=== PATIENT | female | born 1945 | race Caucasian/White ===

== ENCOUNTER 2022-04-09 14:52 | Inpatient (IN) | payer MEDICARE, MEDICAID ==
[~2022-04-09] VITALS: Ht 154.9 cm; Wt 59.2 kg
[2022-04-09] MEDS ORDERED: ATOR10TA PO (15:24)
[2022-04-09] MEDS ORDERED: METO-296 PO (15:24)
[2022-04-09] MEDS ORDERED: LISI-893 PO (15:24)
[2022-04-09] MEDS ORDERED: CLOP75TA60 PO (15:24)
[2022-04-09] MEDS ORDERED: PROPARACAINE HCL 0.5% 15 ML OPHTHALMIC SOLUTION OU ONE (16:00)
[2022-04-09 16:24] LABS: BASOPHILS % (AUTO) 0.6 % (0.0-2.0); EOSINOPHILS % (AUTO) 0.6 % (1.0-6.0); HEMATOCRIT 39.2 % (36-46); HEMOGLOBIN 12.8 g/dL (12.0-16.0); LYMPHOCYTES # (AUTO) 1.6 K/uL (1.0-4.8); MEAN CORPUSCULAR HEMOGLOBIN 30.9 pg (26.0-34.0); MEAN CORPUSCULAR HGB CONC 32.7 G/dL (31.0-37.0); MEAN CORPUSCULAR VOLUME 95 fL (80-100); MONOCYTES # (AUTO) 1.3 K/uL (0.1-1.0); MONOCYTES % (AUTO) 10.9 % (2.0-9.0); NEUTROPHILS # (AUTO) 8.5 K/uL (1.8-7.7); NEUTROPHILS % (AUTO) 73.9 % (40.0-70.0); PLATELET COUNT (AUTO) 377 K/uL (150-450); RED BLOOD CELL COUNT(AUTO) 4.14 MIL/uL (4.00-5.20)
[2022-04-09 16:31] LABS: COVID AG,FIA SOURCE NASOPHARYNGEAL
[2022-04-09 16:34] LABS: ANION GAP 4 mmol/L (8-16); CALCIUM, TOTAL 8.4 mg/dL (8.8-10.5); CARBON DIOXIDE 27 mmol/L (22-29); CHLORIDE 105 mmol/L (98-107); CREATININE 1.05 mg/dL (0.60-1.30); GLUCOSE,RANDOM 192 mg/dL (70-110); POTASSIUM 4.9 mmol/L (3.5-5.1); SODIUM SERUM 136 mmol/L (136-145); UREA NITROGEN, BLOOD 15 mg/dL (7-18)
[2022-04-09 16:35] LABS: GLOMERULAR FILTR. RATE CALC 51 mL/min (>60)
[2022-04-09 16:39] LABS: ALANINE AMINOTRANSFERASE 22 U/L (12-78); ALBUMIN 3.2 g/dL (3.4-5.0); ALKALINE PHOSPHATASE 91 U/L (46-116); ASPARTATE AMINOTRANSFERASE 18 U/L (15-37); BILIRUBIN,TOTAL 0.4 mg/dL (0.1-1.0); LIPASE 131 U/L (73-393); TOTAL PROTEIN, SERUM 6.6 g/dL (6.4-8.2)
[2022-04-09 16:41] LABS: B-TYPE NATRIURETIC PEPTIDE 9 pg/mL (0-100)
[2022-04-09 16:45] LABS: LACTIC ACID 2.3 mmol/L (0.4-2.0)
[2022-04-09] MEDS ORDERED: PROP10DR5 OP (18:07)
[2022-04-09] MEDS ORDERED: BIMA2.5D4 OS (18:07)
[2022-04-09] MEDS ORDERED: PRED5DRO25 OS (18:07)
[2022-04-09 18:27] LABS: APPEARANCE,URINE HAZY (CLEAR); BILIRUBIN,URINE NEGATIVE (NEGATIVE); GLUCOSE, URINE (UA) >=1000 mg/dL (NEGATIVE); KETONES,URINE NEGATIVE (NEGATIVE); LEUKOCYTE ESTERASE ,URINE SMALL (NEGATIVE); NITRATE,URINE NEGATIVE (NEGATIVE); OCCULT BLOOD,URINE NEGATIVE (NEGATIVE); PH,URINE 5.5 (5.0-8.0); PROTEIN,URINE NEGATIVE (NEGATIVE); SPECIFIC GRAVITIY, URINE 1.016 (1.003-1.030); UROBILINOGEN,URINE <=1.0 mg/dL (<=1.0)
[2022-04-09 18:40] LABS: BACTERIA,URINE Moderate /HPF (None Seen); RBC,URINE 0-2 /HPF (0-2); SQUAMOUS EPITHELIAL CELL,UR Many /LPF (None Seen)
[2022-04-09] MEDS ORDERED: ACETAMINOPHEN 325 MG TABLET PO PRN ×2 (19:00→19:30)
[2022-04-09] MEDS ORDERED: CefTRIAXone 1 GM/DEXTROSE 50 ML IV ONE (19:00)
[2022-04-09] MEDS ORDERED: 0.9% SODIUM CHLORIDE 10 ML SYRINGE IVP PRN (19:00)
[2022-04-09] MEDS ORDERED: ONDANSETRON HCL 4 MG/2 ML VIAL IVP PRN ×2 (19:00→19:30)
[2022-04-09] MEDS ORDERED: ZOLPIDEM TARTRATE 5 MG TABLET PO PRN (19:30)
[2022-04-09] MEDS ORDERED: MAGNESIUM HYDROXIDE SUSPENSION 30 ML UDCUP PO PRN (19:30)
[2022-04-09] MEDS ORDERED: BISACODYL 10 MG RECTAL RECTAL SUPPOSITORY PR PRN (19:30)
[2022-04-09] MEDS ORDERED: HYDROCODONE/ACETAMINOPHEN 5-325 MG TABLET PO PRN (19:30)
[2022-04-09] MEDS ORDERED: MORPHINE SULFATE 2 MG/ML SYRINGE IVP PRN (19:30)
[2022-04-09] MEDS ORDERED: *PATIENT'S OWN MED [ENTER DRUG, DOSE, FREQUENCY IN COMMENTS] CLINICAL ONE (19:45)
[2022-04-09] MEDS ORDERED: BIMATOPROST 0.01% 2.5 ML OPHTHALMIC SOLUTION OS SCH (21:00)
[2022-04-09] MEDS ORDERED: SYSTANE OU SCH (21:00)
[2022-04-09] MEDS ORDERED: BRIMONIDINE TARTRATE 0.15% 5 ML OPHTHALMIC SOLUTION OS SCH (21:00)
[2022-04-09] MEDS ORDERED: BRINZOLAMIDE 1% 10 ML OPHTHALMIC SUSPENSION OS SCH (21:00)
[2022-04-09] MEDS: DOCUSATE SODIUM 100 MG CAPSULE PO SCH (21:00)
[2022-04-09 21:41] VITALS: BP 145/60
[2022-04-09 23:40] VITALS: BP 105/59
[2022-04-10] MEDS: HEPARIN SODIUM,PORCINE 5,000 UNITS/ML VIAL SQ SCH ×3 (00:48→16:00)
[2022-04-10 03:50] VITALS: BP 111/53
[2022-04-10 06:47] LABS: BASOPHILS % (AUTO) 0.8 % (0.0-2.0); EOSINOPHILS % (AUTO) 1.4 % (1.0-6.0); HEMATOCRIT 39.9 % (36-46); HEMOGLOBIN 13.3 g/dL (12.0-16.0); LYMPHOCYTES # (AUTO) 2.2 K/uL (1.0-4.8); LYMPHOCYTES % (AUTO) 23.5 % (22.0-44.0); MEAN CORPUSCULAR HEMOGLOBIN 31.7 pg (26.0-34.0); MEAN CORPUSCULAR HGB CONC 33.3 G/dL (31.0-37.0); MEAN CORPUSCULAR VOLUME 95 fL (80-100); MONOCYTES % (AUTO) 10.9 % (2.0-9.0); NEUTROPHILS # (AUTO) 5.9 K/uL (1.8-7.7); NEUTROPHILS % (AUTO) 63.4 % (40.0-70.0); PLATELET COUNT (AUTO) 362 K/uL (150-450); RED CELL DISTRIBUTION WIDTH 13.9 % (11.5-14.5)
[2022-04-10 07:07] LABS: CALCIUM, TOTAL 8.9 mg/dL (8.8-10.5); CREATININE 0.93 mg/dL (0.60-1.30); POTASSIUM 4.3 mmol/L (3.5-5.1)
[2022-04-10] MEDS: DOCUSATE SODIUM 100 MG CAPSULE PO SCH ×2 (08:29→20:29)
[2022-04-10] MEDS: CLOPIDOGREL BISULFATE 75 MG TABLET PO SCH (08:30)
[2022-04-10] MEDS: ATORVASTATIN CALCIUM 10 MG TABLET PO SCH (08:30)
[2022-04-10] MEDS: PANTOPRAZOLE SODIUM 40 MG DR TABLET PO SCH (08:30)
[2022-04-10] MEDS ORDERED: SODIUM CHLORIDE 0.9% 1,000 ML ONE (08:45)
[2022-04-10] MEDS ORDERED: LISINOPRIL 10 MG TABLET PO SCH (09:00)
[2022-04-10] MEDS: BIMATOPROST 0.01% 2.5 ML OPHTHALMIC SOLUTION OS SCH (09:00)
[2022-04-10] MEDS ORDERED: PrednisoLONE ACETATE 1% 5 ML OPHTHALMIC SUSPENSION OD SCH (09:00)
[2022-04-10 09:44] VITALS: BP 121/77
[2022-04-10 12:16] VITALS: BP 120/49
[2022-04-10] MEDS ORDERED: SODIUM CHLORIDE 0.9% 1,000 ML IV ONE (12:45)
[2022-04-10] MEDS ORDERED: *CLINICAL-LEVOFLOXACIN IVPB DOSING CLINICAL ONE (12:45)
[2022-04-10] MEDS ORDERED: LEVOFLOXACIN 750 MG/D5% WATER 150 ML IV SCH (13:00)
[2022-04-10 16:27] VITALS: BP 127/64
[2022-04-10 19:14] VITALS: BP 118/64
[2022-04-11 00:10] VITALS: BP 113/67
[2022-04-11] MEDS: HEPARIN SODIUM,PORCINE 5,000 UNITS/ML VIAL SQ SCH ×3 (00:18→15:24)
[2022-04-11 06:53] VITALS: BP 121/75
[2022-04-11 07:31] VITALS: BP 120/63
[2022-04-11 08:17] LABS: BASOPHILS % (AUTO) 0.7 % (0.0-2.0); EOSINOPHILS % (AUTO) 1.7 % (1.0-6.0); HEMOGLOBIN 13.3 g/dL (12.0-16.0); LYMPHOCYTES # (AUTO) 2.4 K/uL (1.0-4.8); LYMPHOCYTES % (AUTO) 27.2 % (22.0-44.0); MEAN CORPUSCULAR HEMOGLOBIN 31.3 pg (26.0-34.0); MEAN CORPUSCULAR HGB CONC 33.1 G/dL (31.0-37.0); MEAN CORPUSCULAR VOLUME 95 fL (80-100); MONOCYTES # (AUTO) 0.9 K/uL (0.1-1.0); MONOCYTES % (AUTO) 10.3 % (2.0-9.0); NEUTROPHILS # (AUTO) 5.3 K/uL (1.8-7.7); NEUTROPHILS % (AUTO) 60.1 % (40.0-70.0); PLATELET COUNT (AUTO) 377 K/uL (150-450); RED BLOOD CELL COUNT(AUTO) 4.23 MIL/uL (4.00-5.20); RED CELL DISTRIBUTION WIDTH 14.1 % (11.5-14.5)
[2022-04-11 08:18] LABS: CALCIUM, TOTAL 8.7 mg/dL (8.8-10.5); CREATININE 0.94 mg/dL (0.60-1.30); POTASSIUM 4.1 mmol/L (3.5-5.1)
[2022-04-11] MEDS: CLOPIDOGREL BISULFATE 75 MG TABLET PO SCH (08:56)
[2022-04-11] MEDS: ATORVASTATIN CALCIUM 10 MG TABLET PO SCH (08:56)
[2022-04-11] MEDS: DOCUSATE SODIUM 100 MG CAPSULE PO SCH (08:57)
[2022-04-11] MEDS: BIMATOPROST 0.01% 2.5 ML OPHTHALMIC SOLUTION OS SCH (08:57)
[2022-04-11] MEDS: PANTOPRAZOLE SODIUM 40 MG DR TABLET PO SCH (08:57)
[2022-04-11 11:19] VITALS: BP 104/55
[2022-04-11] MEDS ORDERED: LEVOFLOXACIN 250 MG/D5% WATER 50 ML IV SCH (14:00)
[2022-04-11] MEDS ORDERED: SODIUM CHLORIDE 0.9% 500 ML IV ONE (14:14)
[2022-04-11 15:02] VITALS: BP 118/60
== END 2022-04-11 17:30 | disposition home or self-care (01) | DRG 74 ==
LOC: EMS 14:58 → 5N 20:00
PROVIDERS: ADMIT Internal Medicine; ATTEND Internal Medicine
DX: G90.8 Other disorders of autonomic nervous system (principal); E44.0 Moderate protein-calorie malnutrition; N39.0 Urinary tract infection, site not specified; Z88.0 Allergy status to penicillin; E11.65 Type 2 diabetes mellitus with hyperglycemia; I10 Essential (primary) hypertension; E78.5 Hyperlipidemia, unspecified; Z20.822 Contact with and (suspected) exposure to COVID-19; I95.9 Hypotension, unspecified; E86.0 Dehydration; Z79.02 Long term (current) use of antithrombotics/antiplatelets; Z86.73 Personal history of transient ischemic attack (TIA), and cerebral infarction without residual deficits; Z79.899 Other long term (current) drug therapy; Z68.24 Body mass index [BMI] 24.0-24.9, adult
CPT/HCPCS: 70450; 71045; 80048; 80053; 81001; 83605; 83690; 83880; 84484; 85025; 87086; 87186; 93005; 93306; 93880; 99285; G0480; J0696; J1644; J1956; J7030; J7040; 36415-L1; 36415-TC